=== PATIENT | male | born 1955 | race Caucasian/White ===

== ENCOUNTER 2021-08-04 12:15 | Emergency (ER) | payer OTHER, MEDICAID ==
[~2021-08-04] VITALS: Ht 180.3 cm; Wt 102.1 kg
[2021-08-04 12:17] VITALS: BP 140/75
== END 2021-08-04 21:41 | disposition left against medical advice (07) ==
LOC: ER 12:15
DX: Z49.01 Encounter for fitting and adjustment of extracorporeal dialysis catheter (principal); Z53.21 Procedure and treatment not carried out due to patient leaving prior to being seen by health care provider
CPT/HCPCS: 71045

== ENCOUNTER 2021-08-18 10:05 | Emergency (ER) | payer OTHER, MEDICAID ==
[~2021-08-18] VITALS: Ht 180.3 cm; Wt 125.6 kg
[2021-08-18 10:08] VITALS: BP 119/71
[2021-08-18] MEDS ORDERED: IOHEXOL 350 MG/ML 100ML IJ ONE (13:00)
[2021-08-18 18:42] LABS: Basophils # (auto) 0.1 10 ^3/uL (0-0.2); Basophils % (auto) 2.4 % (0.0-2.0); Eosinophils # (auto) 0.1 10 ^3/uL (0-0.8); Eosinophils % (auto) 2.2 % (0.0-7.0); Hematocrit 31.4 % (41.0-53.0); Hemoglobin 10.4 g/dL (13.5-17.5); Lymphocytes # (auto) 0.5 10 ^3/uL (0.4-5.4); Lymphocytes % (auto) 8.8 % (10.0-50.0); Mean Corpuscular Hemoglobin 32.2 pg (28.0-32.0); Mean Corpuscular Hgb Conc. 33.2 g/dL (32.0-36.0); Mean Corpuscular Volume 96.9 fL (80.0-100.0); Monocytes # (auto) 0.6 10 ^3/uL (0-1.3); Monocytes % (auto) 10.9 % (0.0-12.0); Neutrophils % (auto) 75.7 % (37.0-80.0); Nucleated Red Blood Cells % 0.1 %; Red Blood Cells 3.25 10^6/uL (4.5-5.90); Red Cell Distribution Width 13.1 % (11.8-14.3); White Blood Cell 5.3 10^3/uL (4.4-10.8)
[2021-08-18 18:57] LABS: INR 1.05 (0.9-1.15); Partial Thromboplastin Time 26.5 sec (23.6-33.0)
[2021-08-18 18:58] LABS: Albumin 3.6 g/dL (3.4-5.0); Calcium 8.5 mg/dL (8.5-10.1); Potassium 4.1 mmol/L (3.5-5.1)
[2021-08-18 19:11] LABS: BUN/Creatinine Ratio 8.5; Bilirubin, Total 0.4 mg/dL (0.2-1.0); Total Protein 7.5 g/dL (6.4-8.2)
== END 2021-08-18 19:57 | disposition left against medical advice (07) ==
LOC: ER 10:05
DX: Z49.01 Encounter for fitting and adjustment of extracorporeal dialysis catheter (principal); I10 Essential (primary) hypertension; E11.9 Type 2 diabetes mellitus without complications
CPT/HCPCS: 36415; 71046; 71275; 80053; 83735; 85025; 85610; 85730; 93005; 99285; Q9967

== ENCOUNTER 2022-05-14 19:08 | Inpatient (IN) | payer OTHER, MEDICAID ==
[~2022-05-14] VITALS: Ht 180.3 cm; Wt 125.8 kg
[2022-05-14 19:39] LABS: Basophils # (auto) 0 10 ^3/uL (0-0.2); Basophils % (auto) 0.8 % (0.0-2.0); Eosinophils # (auto) 0.1 10 ^3/uL (0-0.8); Hematocrit 34.9 % (41.0-53.0); Hemoglobin 11.7 g/dL (13.5-17.5); Lymphocytes # (auto) 0.5 10 ^3/uL (0.4-5.4); Mean Corpuscular Hemoglobin 33.3 pg (28.0-32.0); Mean Corpuscular Hgb Conc. 33.6 g/dL (32.0-36.0); Mean Corpuscular Volume 98.9 fL (80.0-100.0); Monocytes # (auto) 0.4 10 ^3/uL (0-1.3); Monocytes % (auto) 13.3 % (0.0-12.0); Neutrophils # (auto) 2.2 10 ^3/uL (1.6-8.6); Neutrophils % (auto) 66.9 % (37.0-80.0); Red Blood Cells 3.53 10^6/uL (4.5-5.90); White Blood Cell 3.2 10^3/uL (4.4-10.8)
[2022-05-14 19:57] LABS: Albumin 3.6 g/dL (3.4-5.0); Potassium 4.4 mmol/L (3.5-5.1)
[2022-05-14 20:02] LABS: BUN/Creatinine Ratio 8.3; Bilirubin, Total 0.4 mg/dL (0.2-1.0); Total Protein 7.3 g/dL (6.4-8.2)
[2022-05-14 20:57] LABS: INR 1.06 (0.9-1.15); Partial Thromboplastin Time 26.6 sec (24.6-33.4)
[2022-05-14] MEDS ORDERED: TEMAZEPAM 15 MG CAP PO PRN (21:30)
[2022-05-14] MEDS ORDERED: ACETAMINOPHEN 325 MG TAB PO PRN (21:30)
[2022-05-14] MEDS ORDERED: ONDANSETRON HCL 4 MG/2 ML VIAL IV PRN (21:30)
[2022-05-14] MEDS ORDERED: MORPHINE SULFATE INJ 2 MG/ml SYRG IV PRN (21:30)
[2022-05-14] MEDS ORDERED: ENOXAPARIN SOD 120 MG/0.8 ML SYRINGE SC ONE (21:30)
[2022-05-14] MEDS ORDERED: NITROGLYCERIN 0.4 MG SL TAB SL PRN (21:30)
[2022-05-14] MEDS ORDERED: DEXTROSE (50%) 50ML SYRG IV PRN (21:30)
[2022-05-14] MEDS: hydrALAZINE HCL 25 MG TAB PO SCH (22:00)
[2022-05-14] MEDS: InsuLIN REG 1unit/0.01ml Soln (100units/ml) SC SCH (22:00)
[2022-05-14] MEDS: SODIUM BICARBONATE 650 MG TAB PO SCH (22:28)
[2022-05-14] MEDS: MONTELUKAST SODIUM 10 MG TAB PO SCH (22:28)
[2022-05-14] MEDS: ACCU-CHEK COMFORT CURVE STRIP VI SCH (22:29)
[2022-05-15 04:46] LABS: Basophils # (auto) 0 10 ^3/uL (0-0.2); Eosinophils # (auto) 0.1 10 ^3/uL (0-0.8); Eosinophils % (auto) 3.5 % (0.0-7.0); Hematocrit 33.4 % (41.0-53.0); Hemoglobin 11.4 g/dL (13.5-17.5); Lymphocytes # (auto) 0.5 10 ^3/uL (0.4-5.4); Lymphocytes % (auto) 13.5 % (10.0-50.0); Mean Corpuscular Hemoglobin 33.5 pg (28.0-32.0); Mean Corpuscular Volume 98.6 fL (80.0-100.0); Monocytes # (auto) 0.4 10 ^3/uL (0-1.3); Monocytes % (auto) 11.1 % (0.0-12.0); Neutrophils # (auto) 2.5 10 ^3/uL (1.6-8.6); Neutrophils % (auto) 70.9 % (37.0-80.0); Red Blood Cells 3.39 10^6/uL (4.5-5.90); Red Cell Distribution Width 13.8 % (11.8-14.3); White Blood Cell 3.5 10^3/uL (4.4-10.8)
[2022-05-15 05:07] LABS: Albumin 3.5 g/dL (3.4-5.0); Calcium 8.2 mg/dL (8.5-10.1); Potassium 4.2 mmol/L (3.5-5.1)
[2022-05-15 05:12] LABS: BUN/Creatinine Ratio 8.3; Bilirubin, Total 0.5 mg/dL (0.2-1.0); Total Protein 7.4 g/dL (6.4-8.2)
[2022-05-15] MEDS: InsuLIN REG 1unit/0.01ml Soln (100units/ml) SC SCH ×4 (07:35→22:00)
[2022-05-15] MEDS: ACCU-CHEK COMFORT CURVE STRIP VI SCH ×4 (07:35→22:10)
[2022-05-15] MEDS: SEVELAMER 800 MG TAB PO SCH ×3 (08:11→18:15)
[2022-05-15] MEDS: hydrALAZINE HCL 25 MG TAB PO SCH ×2 (10:00→22:13)
[2022-05-15] MEDS: PANTOPRAZOLE 40 MG TAB PO SCH (10:04)
[2022-05-15] MEDS: CLOPIDOGREL BISULFATE 75 MG TAB PO SCH (10:04)
[2022-05-15] MEDS: ASPirin 81 mg TAB PO SCH (10:05)
[2022-05-15] MEDS: SODIUM BICARBONATE 650 MG TAB PO SCH ×2 (10:05→22:14)
[2022-05-15] MEDS: ALLOPURINOL 100 MG TAB PO SCH (10:05)
[2022-05-15] MEDS: METOPROLOL SUCCINATE XL 50 MG TAB PO SCH (10:05)
[2022-05-15 15:26] LABS: INR 1.08 (0.9-1.15); Partial Thromboplastin Time 30.4 sec (24.6-33.4)
[2022-05-15] MEDS ORDERED: HEPARIN DRIP/D5W 100UNITS/ML 250 ML IV SCH ×2 (15:45→21:00)
[2022-05-15] MEDS ORDERED: SODI650T PO (15:49)
[2022-05-15] MEDS ORDERED: NITR0.4S29 SL (15:49)
[2022-05-15] MEDS ORDERED: SEVE800T8 PO (15:49)
[2022-05-15] MEDS ORDERED: DULO30CA PO (15:49)
[2022-05-15] MEDS ORDERED: INSUINJ37 SC (15:49)
[2022-05-15] MEDS ORDERED: TERA5CAP2 PO (15:49)
[2022-05-15] MEDS ORDERED: COLC0.6T56 PO (15:49)
[2022-05-15] MEDS ORDERED: OLOP1DRO5 OP (15:49)
[2022-05-15] MEDS ORDERED: FLUT50SP EACHNOSTRI (15:49)
[2022-05-15] MEDS ORDERED: CLOP75TA70 PO (15:49)
[2022-05-15] MEDS ORDERED: ALLO100T PO (15:49)
[2022-05-15] MEDS ORDERED: METO-289 PO (15:49)
[2022-05-15] MEDS ORDERED: ASPI-498 PO (15:49)
[2022-05-15] MEDS ORDERED: TRAZ100T3 PO (15:49)
[2022-05-15] MEDS ORDERED: MONT10TA23 PO (15:49)
[2022-05-15] MEDS ORDERED: ALBU108A5 IN (15:49)
[2022-05-15] MEDS ORDERED: CINA30TA2 PO (15:51)
[2022-05-15] MEDS ORDERED: ATO40T PO (18:05)
[2022-05-15 20:00] VITALS: BP 141/81
[2022-05-15 21:30] VITALS: BP 141/81
[2022-05-15] MEDS: ATORVASTATIN 20 MG TAB PO SCH (22:13)
[2022-05-15] MEDS: MONTELUKAST SODIUM 10 MG TAB PO SCH (22:13)
[2022-05-16] VITALS (10 sets, daily range): BP systolic 112–172; BP diastolic 64–92
[2022-05-16] MEDS ORDERED: SODIUM CHL 0.9% 1000 ML BAG XX ONE (04:15)
[2022-05-16 04:35] LABS: INR 1.07 (0.9-1.15); Partial Thromboplastin Time 45.5 sec (24.6-33.4)
[2022-05-16] MEDS: SEVELAMER 800 MG TAB PO SCH ×2 (08:00→12:00)
[2022-05-16] MEDS: ALLOPURINOL 100 MG TAB PO SCH (09:38)
[2022-05-16] MEDS: hydrALAZINE HCL 25 MG TAB PO SCH ×2 (09:38→23:01)
[2022-05-16] MEDS: METOPROLOL SUCCINATE XL 50 MG TAB PO SCH (09:38)
[2022-05-16] MEDS: ASPirin 81 mg TAB PO SCH (09:38)
[2022-05-16] MEDS: SODIUM BICARBONATE 650 MG TAB PO SCH ×2 (09:38→23:01)
[2022-05-16] MEDS: CLOPIDOGREL BISULFATE 75 MG TAB PO SCH (09:39)
[2022-05-16] MEDS: PANTOPRAZOLE 40 MG TAB PO SCH (09:39)
[2022-05-16 11:27] LABS: INR 1.07 (0.9-1.15)
[2022-05-16] MEDS: ACCU-CHEK COMFORT CURVE STRIP VI SCH ×4 (11:30→23:02)
[2022-05-16] MEDS: InsuLIN REG 1unit/0.01ml Soln (100units/ml) SC SCH ×3 (11:30→22:00)
[2022-05-16] MEDS ORDERED: LIDOCAINE 2%HCL (LOCAL ANESTH.) INJ 20ML MDV ONE (12:46)
[2022-05-16] MEDS ORDERED: IODIXANOL 320MG/ML 100ML BTL IV ONE ×3 (12:46→14:09)
[2022-05-16] MEDS ORDERED: HEPARIN SODIUM (PORCINE) 5000 UNITS/ML 1ML VIAL ONE (13:08)
[2022-05-16] MEDS ORDERED: VERAPAMIL 2.5MG/ML INJ 2ML VIAL IV ONE (13:08)
[2022-05-16] MEDS ORDERED: fentaNYL CITRATE 100 MCG/2 ML VL ONE (13:09)
[2022-05-16] MEDS ORDERED: MIDAZOLAM HCL 2MG/2ML 2ml VIAL (1mg/ml) ONE (13:09)
[2022-05-16] MEDS ORDERED: ANGIOMAX 250 MG VIAL IV ONE (13:14)
[2022-05-16] MEDS ORDERED: SODIUM CHL 0.9% 50 ML ONE (13:14)
[2022-05-16] MEDS ORDERED: CLOPIDOGREL 300 MG TAB ONE (14:18)
[2022-05-16] MEDS: ATORVASTATIN 20 MG TAB PO SCH (23:01)
[2022-05-16] MEDS: MONTELUKAST SODIUM 10 MG TAB PO SCH (23:02)
[2022-05-17 04:15] VITALS: BP 137/71
[2022-05-17 05:41] LABS: Cholesterol 96 mg/dL (< 200); HDL Cholesterol 44 mg/dL (40-59); LDL Cholesterol 42 mg/dL (< 100); Triglycerides 139 mg/dL (< 150)
[2022-05-17] MEDS: ACCU-CHEK COMFORT CURVE STRIP VI SCH ×2 (06:17→11:17)
[2022-05-17] MEDS: InsuLIN REG 1unit/0.01ml Soln (100units/ml) SC SCH ×3 (06:45→11:17)
[2022-05-17] MEDS ORDERED: SODIUM CHL 0.9% 1000 ML BAG XX ONE (07:00)
[2022-05-17] MEDS: SEVELAMER 800 MG TAB PO SCH ×2 (08:23→08:31)
[2022-05-17] MEDS: PANTOPRAZOLE 40 MG TAB PO SCH (08:24)
[2022-05-17] MEDS: ASPirin 81 mg TAB PO SCH (08:24)
[2022-05-17] MEDS: SODIUM BICARBONATE 650 MG TAB PO SCH (08:24)
[2022-05-17] MEDS: hydrALAZINE HCL 25 MG TAB PO SCH (08:26)
[2022-05-17] MEDS: METOPROLOL SUCCINATE XL 50 MG TAB PO SCH (08:26)
[2022-05-17] MEDS: CLOPIDOGREL BISULFATE 75 MG TAB PO SCH (08:26)
[2022-05-17] MEDS: ALLOPURINOL 100 MG TAB PO SCH (08:30)
[2022-05-17 08:53] LABS: BUN/Creatinine Ratio 7.6; Calcium 8.1 mg/dL (8.5-10.1); Potassium 4.4 mmol/L (3.5-5.1)
[2022-05-17 09:00] VITALS: BP 153/78
[2022-05-17 12:06] VITALS: BP 132/87
[2022-05-17 12:27] VITALS: BP 132/87
== END 2022-05-17 12:40 | disposition home or self-care (01) | DRG 246 ==
LOC: EDBD 19:08 → ER 19:08 → EDBD 21:35 → TELE 21:35 → TELE-EAST 05-15 16:31
PROVIDERS: ADMIT Nurse Practitioner; ATTEND Internal Medicine Geriatric Medicine
PROC: 027034Z Dilation of Coronary Artery, One Artery with Drug-eluting Intraluminal Device, Percutaneous Approach (ICD-10-PCS; principal; 2022-05-16)
PROC: 5A1D70Z Performance of Urinary Filtration, Intermittent, Less than 6 Hours Per Day (ICD-10-PCS; 2022-05-16)
DX: I21.4 Non-ST elevation (NSTEMI) myocardial infarction (principal); N18.6 End stage renal disease; T82.867A Thrombosis due to cardiac prosthetic devices, implants and grafts, initial encounter; I12.0 Hypertensive chronic kidney disease with stage 5 chronic kidney disease or end stage renal disease; T82.855A Stenosis of coronary artery stent, initial encounter; D63.8 Anemia in other chronic diseases classified elsewhere; E11.22 Type 2 diabetes mellitus with diabetic chronic kidney disease; E78.5 Hyperlipidemia, unspecified; I48.91 Unspecified atrial fibrillation; J45.909 Unspecified asthma, uncomplicated; D63.1 Anemia in chronic kidney disease; Z20.822 Contact with and (suspected) exposure to COVID-19; E66.9 Obesity, unspecified; E87.5 Hyperkalemia; Y83.1 Surgical operation with implant of artificial internal device as the cause of abnormal reaction of the patient, or of later complication, without mention of misadventure at the time of the procedure; I25.10 Atherosclerotic heart disease of native coronary artery without angina pectoris; M89.9 Disorder of bone, unspecified; Z99.2 Dependence on renal dialysis; Z68.38 Body mass index [BMI] 38.0-38.9, adult; Z79.02 Long term (current) use of antithrombotics/antiplatelets; Z79.82 Long term (current) use of aspirin; Y92.89 Other specified places as the place of occurrence of the external cause
CPT/HCPCS: 36415; 71045; 80048; 80053; 80061; 82962; 83735; 83880; 84484; 85025; 85610; 85730; 87426; 90935; 92928; 93005; 93306; 96372; 99152; 99153; 99291; C1874; G0378; J1642; J1815; J2250; Q9967

== ENCOUNTER 2023-02-23 18:07 | Inpatient (IN) | payer MEDICARE, MEDICAID ==
[~2023-02-23] VITALS: Ht 172.7 cm; Wt 123.8 kg
[~2023-02-23 18:07] MED LIST: ALBU108A5 IN; ALLO100T PO; ASPI-498 PO; ATO40T PO; CINA30TA2 PO; CLOP75TA70 PO; COLC0.6T56 PO; DULO30CA PO; FLUT50SP EACHNOSTRI; INSUINJ37 SC; METO-289 PO; MONT10TA23 PO; NITR0.4S29 SL; OLOP1DRO OP; SEVE800T8 PO; SODI650T PO; TERA5CAP57 PO; TRAZ-228 PO
[2023-02-23 18:28] VITALS: PULSE 83; RESP 17; O2SAT 96
[2023-02-23 18:49] LABS: Basophils # (auto) 0 10 ^3/uL (0-0.2); Eosinophils # (auto) 0.1 10 ^3/uL (0-0.8); Hemoglobin 11.1 g/dL (13.5-17.5); Lymphocytes # (auto) 0.6 10 ^3/uL (0.4-5.4); Mean Corpuscular Hemoglobin 35.1 pg (28.0-32.0); Mean Corpuscular Hgb Conc. 34.2 g/dL (32.0-36.0); Neutrophils # (auto) 2.7 10 ^3/uL (1.6-8.6); Red Blood Cells 3.16 10^6/uL (4.5-5.90); Red Cell Distribution Width 13.5 % (11.8-14.3); White Blood Cell 3.8 10^3/uL (4.4-10.8)
[2023-02-23 18:50] LABS: Basophils % (auto) 0.5 % (0.0-2.0); Eosinophils % (auto) 3.3 % (0.0-7.0); Hematocrit 32.4 % (41.0-53.0); Mean Corpuscular Volume 102.6 fL (80.0-100.0); Monocytes # (auto) 0.3 10 ^3/uL (0-1.3); Monocytes % (auto) 9.2 % (0.0-12.0); Nucleated Red Blood Cells % 0.2 %
[2023-02-23 19:18] LABS: Albumin 3.9 g/dL (3.4-5.0); Calcium 8.1 mg/dL (8.5-10.1); Potassium 4.3 mmol/L (3.5-5.1)
[2023-02-23 19:22] LABS: BUN/Creatinine Ratio 7.9 (10.0-20.0); Bilirubin, Total 0.4 mg/dL (0.2-1.0); Total Protein 7.4 g/dL (6.4-8.2)
[2023-02-23 19:27] VITALS: PULSE 90; RESP 18; O2SAT 96
[2023-02-23] MEDS ORDERED: NITROGLYCERIN 0.2MG/HR TOPICAL PATCH TD ONE (21:30)
[2023-02-23] MEDS ORDERED: METOPROLOL TARTRATE 25 MG TAB PO ONE (21:30)
[2023-02-23] MEDS ORDERED: PANTOPRAZOLE 40 MG/10 ML VIAL INJ IV ONE (21:30)
[2023-02-23] MEDS ORDERED: MORPHINE SULFATE 4 MG/ML SYR/VIAL IV ONE (21:30)
[2023-02-23] MEDS ORDERED: ACETAMINOPHEN 325 MG TAB PO ONE (21:30)
[2023-02-23] MEDS ORDERED: ATORVASTATIN 20 MG TAB PO ONE (21:30)
[2023-02-23] MEDS ORDERED: ONDANSETRON HCL 4 MG/2 ML VIAL IV ONE (21:30)
[2023-02-23] MEDS ORDERED: ASPirin 81 mg TAB PO ONE (21:30)
[2023-02-23] MEDS ORDERED: HEPARIN SODIUM (PORCINE) 5000 UNITS/ML 1ML VIAL IV ONE (22:00)
[2023-02-23] MEDS ORDERED: TEMAZEPAM 15 MG CAP PO PRN (23:00)
[2023-02-23] MEDS ORDERED: ONDANSETRON HCL 4 MG/2 ML VIAL IV PRN (23:00)
[2023-02-23] MEDS ORDERED: MORPHINE SULFATE INJ 2 MG/ml SYRG IV PRN (23:00)
[2023-02-23] MEDS ORDERED: ACETAMINOPHEN 325 MG TAB PO PRN (23:00)
[2023-02-23] MEDS ORDERED: NITROGLYCERIN 0.4 MG SL TAB SL PRN (23:00)
[2023-02-23] MEDS ORDERED: DEXTROSE (50%) 50ML SYRG IV PRN (23:00)
[2023-02-24 06:16] LABS: Basophils # (auto) 0 10 ^3/uL (0-0.2); Basophils % (auto) 0.7 % (0.0-2.0); Eosinophils # (auto) 0.1 10 ^3/uL (0-0.8); Eosinophils % (auto) 3.8 % (0.0-7.0); Hematocrit 29.7 % (41.0-53.0); Lymphocytes # (auto) 0.5 10 ^3/uL (0.4-5.4); Lymphocytes % (auto) 15.6 % (10.0-50.0); Mean Corpuscular Hemoglobin 34.9 pg (28.0-32.0); Mean Corpuscular Hgb Conc. 33.7 g/dL (32.0-36.0); Mean Corpuscular Volume 103.8 fL (80.0-100.0); Monocytes # (auto) 0.3 10 ^3/uL (0-1.3); Monocytes % (auto) 8.8 % (0.0-12.0); Neutrophils # (auto) 2.2 10 ^3/uL (1.6-8.6); Neutrophils % (auto) 71.1 % (37.0-80.0); Nucleated Red Blood Cells % 0.1 %; Red Blood Cells 2.86 10^6/uL (4.5-5.90); Red Cell Distribution Width 13.8 % (11.8-14.3); White Blood Cell 3.1 10^3/uL (4.4-10.8)
[2023-02-24] MEDS: ACCU-CHEK COMFORT CURVE STRIP VI SCH ×4 (06:20→22:47)
[2023-02-24] MEDS: InsuLIN REG 1unit/0.01ml Soln (100units/ml) SC SCH ×4 (06:20→22:00)
[2023-02-24 06:21] LABS: BUN/Creatinine Ratio 7.8 (10.0-20.0); Calcium 8.1 mg/dL (8.5-10.1); Potassium 4.5 mmol/L (3.5-5.1)
[2023-02-24 07:30] VITALS: O2SAT 96
[2023-02-24 08:01] LABS: Urine Bacteria NONE SEEN /hpf (None Seen); Urine Blood TRACE /uL (Negative); Urine Specific Gravity 1.011 (1.001-1.035); Urine WBC 2 /hpf (0 - 3)
[2023-02-24] MEDS ORDERED: HEPARIN DRIP/D5W 100UNITS/ML 250 ML IV SCH (08:15)
[2023-02-24 08:35] LABS: INR 1.08 (0.9-1.15); Partial Thromboplastin Time 28.1 SEC (24.5-34.5)
[2023-02-24] MEDS: SEVELAMER 800 MG TAB PO SCH ×3 (08:39→18:29)
[2023-02-24] MEDS: METOPROLOL SUCCINATE XL 50 MG TAB PO SCH (10:00)
[2023-02-24] MEDS: DULoxetine HCL 30 MG CAP PO SCH ×2 (10:07→22:25)
[2023-02-24] MEDS: ASPirin 81 mg TAB PO SCH ×2 (10:07→10:14)
[2023-02-24] MEDS: ISOSORBIDE MONONITRATE ER 60 MG TAB PO SCH (10:07)
[2023-02-24] MEDS: TICAGRELOR 90 MG TAB PO SCH ×2 (10:10→22:28)
[2023-02-24 15:17] LABS: Cholesterol 101 mg/dL (< 200)
[2023-02-24 15:20] LABS: HDL Cholesterol 41 mg/dL (40-59); LDL Cholesterol 42 mg/dL (< 100); Triglycerides 160 mg/dL (< 150)
[2023-02-24 15:30] LABS: Alcohol, Urine < 3.0 mg/dL (0-10); Amphetamine Screen, Urine NEGATIVE (NEGATIVE); Barbiturate Scree,Urine NEGATIVE (NEGATIVE); Benzodiazephine Screen, Urine NEGATIVE (NEGATIVE); Cannabinoid Screen, Urine NEGATIVE (NEGATIVE); Cocaine Screen, Urine NEGATIVE (NEGATIVE); Opiate Scree,Urine NEGATIVE (NEGATIVE); Phencyclidine Screen, Urine NEGATIVE (NEGATIVE)
[2023-02-24 16:07] LABS: Basophils # (auto) 0 10 ^3/uL (0-0.2); Eosinophils # (auto) 0.1 10 ^3/uL (0-0.8); Hemoglobin 9.8 g/dL (13.5-17.5); Mean Corpuscular Volume 102.1 fL (80.0-100.0); Monocytes # (auto) 0.3 10 ^3/uL (0-1.3); Monocytes % (auto) 10.3 % (0.0-12.0); Neutrophils # (auto) 1.9 10 ^3/uL (1.6-8.6); Nucleated Red Blood Cells % 0.1 %; White Blood Cell 2.9 10^3/uL (4.4-10.8)
[2023-02-24 16:09] LABS: Basophils % (auto) 0.8 % (0.0-2.0); Eosinophils % (auto) 4.3 % (0.0-7.0); Hematocrit 29.3 % (41.0-53.0); Lymphocytes # (auto) 0.6 10 ^3/uL (0.4-5.4); Lymphocytes % (auto) 19.3 % (10.0-50.0); Mean Corpuscular Hgb Conc. 33.3 g/dL (32.0-36.0); Neutrophils % (auto) 65.3 % (37.0-80.0); Red Blood Cells 2.86 10^6/uL (4.5-5.90); Red Cell Distribution Width 13.8 % (11.8-14.3)
[2023-02-24 16:23] LABS: INR 1.1 (0.9-1.15); Partial Thromboplastin Time 47.4 SEC (24.5-34.5)
[2023-02-24 19:38] VITALS: PULSE 59; RESP 14; O2SAT 100
[2023-02-24 20:30] VITALS: PULSE 60; RESP 14; O2SAT 99
[2023-02-24 21:50] VITALS: PULSE 69
[2023-02-24 21:55] VITALS: BP 145/90; PULSE 60; PULSE 80; RESP 16; TEMP 97.4; O2SAT 100
[2023-02-24] MEDS: ATORVASTATIN 20 MG TAB PO SCH (22:24)
[2023-02-24] MEDS: MONTELUKAST SODIUM 10 MG TAB PO SCH (22:25)
[2023-02-25] VITALS (12 sets, daily range): BP systolic 100–159; BP diastolic 59–93; PULSE 60–91; RESP 12–20; TEMP 97.4–98.3; O2SAT 95–100
[2023-02-25] MEDS ORDERED: POTA1POW PO (01:49)
[2023-02-25] MEDS ORDERED: NITR1SPR TL (01:49)
[2023-02-25] MEDS ORDERED: TICA90TA PO (01:49)
[2023-02-25] MEDS ORDERED: MOME1AER3 INH (01:49)
[2023-02-25] MEDS ORDERED: FLUT1SPR5 (01:49)
[2023-02-25] MEDS ORDERED: EVOL140I SC (01:49)
[2023-02-25] MEDS ORDERED: ISOS1TAB28 PO (01:49)
[2023-02-25] MEDS: ACCU-CHEK COMFORT CURVE STRIP VI SCH ×4 (06:25→21:36)
[2023-02-25] MEDS: InsuLIN REG 1unit/0.01ml Soln (100units/ml) SC SCH ×4 (06:26→21:36)
[2023-02-25 06:33] LABS: Basophils # (auto) 0 10 ^3/uL (0-0.2); Eosinophils # (auto) 0.1 10 ^3/uL (0-0.8); Hemoglobin 10.7 g/dL (13.5-17.5); Lymphocytes # (auto) 0.4 10 ^3/uL (0.4-5.4); Monocytes # (auto) 0.3 10 ^3/uL (0-1.3)
[2023-02-25 06:36] LABS: Basophils % (auto) 0.7 % (0.0-2.0); Eosinophils % (auto) 3.1 % (0.0-7.0); Hematocrit 31.6 % (41.0-53.0); Mean Corpuscular Hemoglobin 34.8 pg (28.0-32.0); Mean Corpuscular Hgb Conc. 33.9 g/dL (32.0-36.0); Mean Corpuscular Volume 102.7 fL (80.0-100.0); Monocytes % (auto) 7.6 % (0.0-12.0); Neutrophils % (auto) 77.6 % (37.0-80.0); Nucleated Red Blood Cells % 0.1 %; Red Blood Cells 3.08 10^6/uL (4.5-5.90); Red Cell Distribution Width 13.7 % (11.8-14.3); White Blood Cell 3.9 10^3/uL (4.4-10.8)
[2023-02-25 06:43] LABS: Albumin 3.8 g/dL (3.4-5.0); Calcium 8.4 mg/dL (8.5-10.1); Potassium 5.5 mmol/L (3.5-5.1)
[2023-02-25 06:47] LABS: BUN/Creatinine Ratio 7.9 (10.0-20.0); Bilirubin, Total 0.5 mg/dL (0.2-1.0); Total Protein 7.7 g/dL (6.4-8.2)
[2023-02-25] MEDS: SEVELAMER 800 MG TAB PO SCH ×3 (08:00→17:33)
[2023-02-25] MEDS: ASPirin 81 mg TAB PO SCH (10:00)
[2023-02-25] MEDS: DULoxetine HCL 30 MG CAP PO SCH ×2 (10:00→21:28)
[2023-02-25] MEDS: TICAGRELOR 90 MG TAB PO SCH ×2 (10:00→21:28)
[2023-02-25] MEDS ORDERED: LIDOCAINE 2%HCL (LOCAL ANESTH.) INJ 20ML MDV ONE (10:32)
[2023-02-25] MEDS ORDERED: IODIXANOL 320MG/ML 100ML BTL IV ONE ×2 (10:32→11:22)
[2023-02-25] MEDS ORDERED: fentaNYL CITRATE 100 MCG/2 ML VL ONE (10:36)
[2023-02-25] MEDS ORDERED: ANGIOMAX 250 MG VIAL IV ONE (10:36)
[2023-02-25] MEDS ORDERED: VERAPAMIL 2.5MG/ML INJ 2ML VIAL IV ONE (10:36)
[2023-02-25] MEDS ORDERED: MIDAZOLAM HCL 2MG/2ML 2ml VIAL (1mg/ml) ONE (10:37)
[2023-02-25] MEDS ORDERED: SODIUM CHL 0.9% 50 ML ONE (10:37)
[2023-02-25] MEDS ORDERED: ATORVASTATIN 20 MG TAB PO ONE (11:00)
[2023-02-25] MEDS ORDERED: ASPirin 81 mg TAB ONE (11:22)
[2023-02-25] MEDS ORDERED: TICAGRELOR 90 MG TAB ONE (11:22)
[2023-02-25] MEDS: PANTOPRAZOLE 40 MG TAB PO SCH (17:33)
[2023-02-25] MEDS: METOPROLOL SUCCINATE XL 50 MG TAB PO SCH (17:34)
[2023-02-25] MEDS: ISOSORBIDE MONONITRATE ER 60 MG TAB PO SCH (17:35)
[2023-02-25] MEDS: MONTELUKAST SODIUM 10 MG TAB PO SCH (21:28)
[2023-02-25] MEDS: ATORVASTATIN 20 MG TAB PO SCH (21:30)
[2023-02-26 05:00] VITALS: BP 93/62; PULSE 100; RESP 14; TEMP 98.2; O2SAT 95
[2023-02-26] MEDS: ACCU-CHEK COMFORT CURVE STRIP VI SCH ×2 (06:15→11:47)
[2023-02-26] MEDS: InsuLIN REG 1unit/0.01ml Soln (100units/ml) SC SCH ×2 (06:16→11:30)
[2023-02-26 06:51] LABS: Basophils # (auto) 0 10 ^3/uL (0-0.2); Eosinophils # (auto) 0.1 10 ^3/uL (0-0.8); Lymphocytes # (auto) 0.5 10 ^3/uL (0.4-5.4); Lymphocytes % (auto) 12.5 % (10.0-50.0); Monocytes # (auto) 0.4 10 ^3/uL (0-1.3); Nucleated Red Blood Cells % 0.2 %
[2023-02-26 06:54] LABS: Basophils % (auto) 0.9 % (0.0-2.0); Eosinophils % (auto) 2.4 % (0.0-7.0); Hematocrit 30.7 % (41.0-53.0); Hemoglobin 10.4 g/dL (13.5-17.5); Mean Corpuscular Hemoglobin 35.3 pg (28.0-32.0); Mean Corpuscular Hgb Conc. 33.8 g/dL (32.0-36.0); Mean Corpuscular Volume 104.2 fL (80.0-100.0); Neutrophils # (auto) 2.7 10 ^3/uL (1.6-8.6); Neutrophils % (auto) 73.2 % (37.0-80.0); Red Blood Cells 2.94 10^6/uL (4.5-5.90); Red Cell Distribution Width 13.5 % (11.8-14.3); White Blood Cell 3.7 10^3/uL (4.4-10.8)
[2023-02-26 08:00] VITALS: PULSE 83; PULSE 85; RESP 18; O2SAT 98
[2023-02-26] MEDS: DULoxetine HCL 30 MG CAP PO SCH (08:56)
[2023-02-26] MEDS: SEVELAMER 800 MG TAB PO SCH ×2 (08:56→12:00)
[2023-02-26] MEDS: METOPROLOL SUCCINATE XL 50 MG TAB PO SCH (08:56)
[2023-02-26] MEDS: ASPirin 81 mg TAB PO SCH (08:56)
[2023-02-26] MEDS: ISOSORBIDE MONONITRATE ER 60 MG TAB PO SCH (08:57)
[2023-02-26] MEDS: TICAGRELOR 90 MG TAB PO SCH (08:57)
[2023-02-26] MEDS: PANTOPRAZOLE 40 MG TAB PO SCH (08:57)
[2023-02-26 09:00] VITALS: BP 122/67; PULSE 85; RESP 18; TEMP 98.1; O2SAT 98
[2023-02-26 10:04] LABS: Albumin 3.6 g/dL (3.4-5.0); Calcium 8.4 mg/dL (8.5-10.1); Potassium 4.2 mmol/L (3.5-5.1)
[2023-02-26 10:09] LABS: BUN/Creatinine Ratio 7.7 (10.0-20.0); Bilirubin, Total 0.5 mg/dL (0.2-1.0); Total Protein 7.2 g/dL (6.4-8.2)
[2023-02-26 10:58] VITALS: BP 122/67; PULSE 85; TEMP 36.7
== END 2023-02-26 12:20 | disposition home or self-care (01) | DRG 250 ==
LOC: ER 18:07 → TELE 22:53 → TELE-WESTW 02-24 21:55
PROVIDERS: ADMIT Internal Medicine
PROC: 4A023N7 Measurement of Cardiac Sampling and Pressure, Left Heart, Percutaneous Approach (ICD-10-PCS; principal; 2023-02-25)
PROC: 02703ZZ Dilation of Coronary Artery, One Artery, Percutaneous Approach (ICD-10-PCS; 2023-02-25)
PROC: 5A1D70Z Performance of Urinary Filtration, Intermittent, Less than 6 Hours Per Day (ICD-10-PCS; 2023-02-25)
PROC: B211YZZ Fluoroscopy of Multiple Coronary Arteries using Other Contrast (ICD-10-PCS; 2023-02-25)
DX: I21.4 Non-ST elevation (NSTEMI) myocardial infarction (principal); I50.21 Acute systolic (congestive) heart failure; N18.6 End stage renal disease; I13.2 Hypertensive heart and chronic kidney disease with heart failure and with stage 5 chronic kidney disease, or end stage renal disease; Z68.41 Body mass index [BMI] 40.0-44.9, adult; D63.8 Anemia in other chronic diseases classified elsewhere; D69.6 Thrombocytopenia, unspecified; E78.5 Hyperlipidemia, unspecified; I25.110 Atherosclerotic heart disease of native coronary artery with unstable angina pectoris; E66.9 Obesity, unspecified; E87.5 Hyperkalemia; J45.909 Unspecified asthma, uncomplicated; I48.91 Unspecified atrial fibrillation; E11.22 Type 2 diabetes mellitus with diabetic chronic kidney disease; Z99.2 Dependence on renal dialysis; Z98.61 Coronary angioplasty status; Z83.3 Family history of diabetes mellitus; Z82.5 Family history of asthma and other chronic lower respiratory diseases; Z82.49 Family history of ischemic heart disease and other diseases of the circulatory system
CPT/HCPCS: 36415; 71046; 80048; 80053; 80061; 80307; 81001; 82962; 83036; 83880; 84443; 84484; 85025; 85379; 85610; 85730; 86850; 86900; 86901; 90935; 92920; 93005; 93306; 93458; 99152; 99153; C9113; G0378; J1815; J2250; Q9967

== ENCOUNTER 2023-08-31 11:37 | Emergency (ER) | payer MEDICARE, MEDICAID ==
[~2023-08-31] VITALS: Ht 180.3 cm; Wt 117.7 kg
[~2023-08-31 11:37] MED LIST changes: +EVOL140I SC; +FLUT1SPR5; +ISOS1TAB28 PO; +MOME1AER3 INH; +NITR1SPR TL; +POTA1POW PO; +TICA90TA PO
[2023-08-31 12:16] VITALS: BP 133/71; PULSE 94; RESP 18; TEMP 97.8; O2SAT 100
[2023-08-31] MEDS ORDERED: diphenhdrAMINE HCL 50 MG/1 ML VL IV ONE (14:15)
[2023-08-31] MEDS ORDERED: DexAMETHasone SOD PHOS 10MG/1ML VIAL INJ IV ONE (14:15)
[2023-08-31] MEDS ORDERED: PANTOPRAZOLE 40 MG/10 ML VIAL INJ IV ONE (14:15)
[2023-08-31] MEDS ORDERED: SODIUM CHLORIDE 0.9% 1,000 ML IV ONE (14:15)
[2023-08-31] MEDS ORDERED: PRED20TA2 PO (17:24)
[2023-08-31] MEDS ORDERED: DIPH25CA66 PO (17:24)
== END 2023-08-31 17:17 | disposition left against medical advice (07) ==
LOC: ER 11:37
DX: T78.3XXA Angioneurotic edema, initial encounter (principal); I25.810 Atherosclerosis of coronary artery bypass graft(s) without angina pectoris; I12.0 Hypertensive chronic kidney disease with stage 5 chronic kidney disease or end stage renal disease; N18.6 End stage renal disease; E11.9 Type 2 diabetes mellitus without complications; I48.91 Unspecified atrial fibrillation; J44.9 Chronic obstructive pulmonary disease, unspecified; F32.9 Major depressive disorder, single episode, unspecified; E78.5 Hyperlipidemia, unspecified; Z98.61 Coronary angioplasty status; Z98.890 Other specified postprocedural states; Z79.899 Other long term (current) drug therapy

== ENCOUNTER 2024-03-21 16:26 | Inpatient (IN) | payer MEDICARE, MEDICAID ==
[~2024-03-21] VITALS: Ht 180.3 cm; Wt 114.9 kg
[~2024-03-21 16:26] MED LIST changes: -ATO40T PO; +ATOR-507 PO; +DIPH25CA66 PO; -OLOP1DRO OP; +PRED20TA2 PO; -TERA5CAP57 PO; +TERA5CAP58 PO; +[UNRECOGNIZED DRUG - CODE] OP
[2024-03-21 17:09] VITALS: PULSE 117; RESP 17; O2SAT 93
[2024-03-21] MEDS: SODIUM CHLORIDE 0.9% 1,000 ML IV ONE (17:19)
[2024-03-21] MEDS: ACETAMINOPHEN IV 1000 MG/100ML (10MG/ML) IV STA (17:27)
[2024-03-21] MEDS: ONDANSETRON HCL 4 MG/2 ML VIAL IV ONE (17:35)
[2024-03-21] MEDS: CALCIUM GLUC 1,000mg/50ml-NS 50 ML IV SCH (18:09)
[2024-03-21 18:22] LABS: Basophils # (auto) 0 10 ^3/uL (0-0.2); Basophils % (auto) 0.2 % (0.0-2.0); Eosinophils # (auto) 0.1 10 ^3/uL (0-0.8); Eosinophils % (auto) 1.7 % (0.0-7.0); Hematocrit 34.9 % (41.0-53.0); Hemoglobin 11.6 g/dL (13.5-17.5); Lymphocytes # (auto) 0.5 10 ^3/uL (0.4-5.4); Lymphocytes % (auto) 9.7 % (10.0-50.0); Mean Corpuscular Hemoglobin 32.4 pg (28.0-32.0); Mean Corpuscular Hgb Conc. 33.2 g/dL (32.0-36.0); Mean Corpuscular Volume 97.8 fL (80.0-100.0); Monocytes # (auto) 0.7 10 ^3/uL (0-1.3); Neutrophils # (auto) 4.2 10 ^3/uL (1.6-8.6); Neutrophils % (auto) 76.4 % (37.0-80.0); Platelet Count (auto) 118 10^3/uL (140-450); Red Blood Cells 3.57 10^6/uL (4.5-5.90); Red Cell Distribution Width 15.3 % (11.8-14.3); White Blood Cell 5.6 10^3/uL (4.4-10.8)
[2024-03-21 18:24] LABS: COVID19 ANTIGEN SOFIA FIA NEGATIVE (NEGATIVE)
[2024-03-21 18:31] LABS: Chloride 97 mmol/L (98-107); Potassium 3.5 mmol/L (3.5-5.1); Sodium 137 mmol/L (136-145)
[2024-03-21 18:32] LABS: Anion Gap 15 (5-15); Calcium 8.5 mg/dL (8.7-10.4); Carbon Dioxide 25 mmol/L (20-30)
[2024-03-21 18:37] LABS: BUN/Creatinine Ratio 7.9 (10.0-20.0); Glucose 156 mg/dL (74-106)
[2024-03-21 18:39] LABS: Blood Urea Nitrogen 120 mg/dL (9-23)
[2024-03-21] MEDS: NOREPINEPHRINE 8 MG/250ML KIT 250 ML IV SCH (18:57)
[2024-03-21] MEDS: CEFEPIME 2GM/50ML NS 50 ML IV ONE (20:03)
[2024-03-21] MEDS ORDERED: ACETAMINOPHEN 325 MG TAB PO PRN (21:45)
[2024-03-21] MEDS ORDERED: ONDANSETRON HCL 4 MG/2 ML VIAL IV PRN (21:45)
[2024-03-21] MEDS ORDERED: DEXTROSE (50%) 50ML SYRG IV PRN (21:45)
[2024-03-21] MEDS ORDERED: MORPHINE SULFATE INJ 2 MG/ml SYRG IV PRN (21:45)
[2024-03-21] MEDS ORDERED: NITROGLYCERIN 0.4 MG SL TAB SL PRN (21:45)
[2024-03-21] MEDS: ATORVASTATIN 20 MG TAB PO SCH (21:53)
[2024-03-21] MEDS: SODIUM BICARBONATE 650 MG TAB PO SCH (21:53)
[2024-03-21] MEDS: ALBUMIN 5% 250 ML IV ONE (22:04)
[2024-03-21] MEDS: ACCU-CHEK COMFORT CURVE STRIP VI SCH (23:52)
[2024-03-21 23:57] LABS: Urine Bacteria FEW /hpf (None Seen); Urine Blood TRACE /uL (Negative); Urine Clarity Clear (Clear); Urine Color Light-Yellow (Yellow); Urine Protein, UAD 1+ (Negative); Urine Specific Gravity 1.013 (1.001-1.035); Urine Urobilinogen Normal (Negative); Urine WBC 1 /hpf (0 - 3); Urine pH 5.5 (5.0-9.0)
[2024-03-21] MEDS: InsuLIN REG 1unit/0.01ml Soln (100units/ml) SC SCH (23:57)
[2024-03-22 04:19] LABS: Basophils # (auto) 0 10 ^3/uL (0-0.2); Basophils % (auto) 0.3 % (0.0-2.0); Eosinophils # (auto) 0.1 10 ^3/uL (0-0.8); Eosinophils % (auto) 2.4 % (0.0-7.0); Hemoglobin 11.6 g/dL (13.5-17.5); Lymphocytes # (auto) 0.7 10 ^3/uL (0.4-5.4); Lymphocytes % (auto) 11.5 % (10.0-50.0); Mean Corpuscular Hemoglobin 33.5 pg (28.0-32.0); Mean Corpuscular Hgb Conc. 34.2 g/dL (32.0-36.0); Monocytes # (auto) 0.7 10 ^3/uL (0-1.3); Monocytes % (auto) 11.5 % (0.0-12.0); Neutrophils # (auto) 4.3 10 ^3/uL (1.6-8.6); Neutrophils % (auto) 74.3 % (37.0-80.0); Platelet Count (auto) 123 10^3/uL (140-450); Red Blood Cells 3.47 10^6/uL (4.5-5.90); Red Cell Distribution Width 14.8 % (11.8-14.3); White Blood Cell 5.8 10^3/uL (4.4-10.8)
[2024-03-22 04:35] LABS: Alanine Aminotransferase 32 U/L (7-40); Albumin 3.8 g/dL (3.2-4.8); Alkaline Phosphatase 84 U/L (46-116); Anion Gap 14 (5-15); Aspartate Aminotransferase 19 U/L (13-40); Calcium 9.1 mg/dL (8.7-10.4); Carbon Dioxide 23 mmol/L (20-30); Chloride 99 mmol/L (98-107); Glucose 152 mg/dL (74-106); Potassium 3.4 mmol/L (3.5-5.1); Sodium 136 mmol/L (136-145)
[2024-03-22 04:36] LABS: Bilirubin, Total 0.3 mg/dL (0.2-1.0); Total Protein 6.3 g/dL (5.7-8.2)
[2024-03-22 04:48] LABS: Blood Urea Nitrogen 103 mg/dL (9-23)
[2024-03-22] MEDS ORDERED: ASPirin 81 mg TAB PO SCH (10:00)
[2024-03-22] MEDS: cefTRIAXone 1GM/50ML D5W 50 ML IV SCH (11:20)
[2024-03-22] MEDS: CLOPIDOGREL BISULFATE 75 MG TAB PO SCH (11:32)
[2024-03-22] MEDS ORDERED: VANCOMYCIN PER PHARMACY 0 MG IV SCH (14:45)
[2024-03-22] MEDS: POTASSIUM EFFERVESENT TAB 25 MEQ PO ONE (15:41)
[2024-03-22] MEDS: VANCOMYCIN 1GM/200ML 200 ML IV SCH (15:46)
[2024-03-22 17:37] LABS: Body Fluid Red Blood Cells 50 CUMM (0-2000)
[2024-03-22 17:39] LABS: Body Fluid White Blood Cells 3 CUMM (0-200)
[2024-03-22 18:42] VITALS: BP 108/60; PULSE 73; RESP 16; TEMP 98.7; O2SAT 96
[2024-03-22 21:00] VITALS: BP 133/78; PULSE 78; RESP 16; TEMP 98.8; O2SAT 96
[2024-03-22] MEDS: APIXABAN 5 MG TAB PO SCH (21:20)
[2024-03-23] VITALS (8 sets, daily range): BP systolic 108–151; BP diastolic 71–92; PULSE 80–85; RESP 14–20; TEMP 97.9–98.8; O2SAT 95–98
[2024-03-23 06:06] LABS: Basophils # (auto) 0 10 ^3/uL (0-0.2); Basophils % (auto) 0.3 % (0.0-2.0); Eosinophils # (auto) 0.1 10 ^3/uL (0-0.8); Hematocrit 34.2 % (41.0-53.0); Hemoglobin 11.4 g/dL (13.5-17.5); Lymphocytes # (auto) 0.2 10 ^3/uL (0.4-5.4); Lymphocytes % (auto) 3.4 % (10.0-50.0); Mean Corpuscular Hemoglobin 32.8 pg (28.0-32.0); Mean Corpuscular Hgb Conc. 33.5 g/dL (32.0-36.0); Mean Corpuscular Volume 97.9 fL (80.0-100.0); Monocytes # (auto) 0.4 10 ^3/uL (0-1.3); Monocytes % (auto) 8.6 % (0.0-12.0); Neutrophils # (auto) 4.2 10 ^3/uL (1.6-8.6); Neutrophils % (auto) 84.7 % (37.0-80.0); Nucleated Red Blood Cells % 0.1 %; Platelet Count (auto) 121 10^3/uL (140-450); Red Blood Cells 3.49 10^6/uL (4.5-5.90); Red Cell Distribution Width 15.1 % (11.8-14.3)
[2024-03-23 06:32] LABS: Alanine Aminotransferase 32 U/L (7-40); Alkaline Phosphatase 73 U/L (46-116); Anion Gap 20 (5-15); Aspartate Aminotransferase 20 U/L (13-40); BUN/Creatinine Ratio 6.8 (10.0-20.0); Bilirubin, Total 0.2 mg/dL (0.2-1.0); Calcium 9.2 mg/dL (8.7-10.4); Carbon Dioxide 21 mmol/L (20-30); Chloride 96 mmol/L (98-107); Glucose 162 mg/dL (74-106); Potassium 3.6 mmol/L (3.5-5.1); Sodium 137 mmol/L (136-145); Total Protein 6.9 g/dL (5.7-8.2)
[2024-03-23 06:40] LABS: Blood Urea Nitrogen 98 mg/dL (9-23)
[2024-03-23] MEDS ORDERED: ASPirin 81 mg TAB PO SCH (10:00)
[2024-03-23] MEDS: DOCUSATE SOD 100 MG CAP PO PRN (14:29)
[2024-03-23] MEDS: DULoxetine HCL 30 MG CAP PO ONE (14:29)
[2024-03-23] MEDS: TERAZOSIN HCL 5 MG CAP PO SCH (21:05)
[2024-03-24 01:00] VITALS: BP 124/71; PULSE 81; RESP 18; TEMP 97.5; O2SAT 93
[2024-03-24 05:00] VITALS: BP 124/78; PULSE 82; RESP 20; TEMP 98.1; O2SAT 97
[2024-03-24 05:48] LABS: Basophils # (auto) 0 10 ^3/uL (0-0.2); Basophils % (auto) 0.5 % (0.0-2.0); Eosinophils # (auto) 0.2 10 ^3/uL (0-0.8); Eosinophils % (auto) 4.8 % (0.0-7.0); Hematocrit 33.2 % (41.0-53.0); Hemoglobin 11.2 g/dL (13.5-17.5); Lymphocytes # (auto) 0.3 10 ^3/uL (0.4-5.4); Lymphocytes % (auto) 8.7 % (10.0-50.0); Mean Corpuscular Hemoglobin 33.1 pg (28.0-32.0); Mean Corpuscular Hgb Conc. 33.8 g/dL (32.0-36.0); Mean Corpuscular Volume 97.8 fL (80.0-100.0); Monocytes # (auto) 0.5 10 ^3/uL (0-1.3); Monocytes % (auto) 13.9 % (0.0-12.0); Neutrophils # (auto) 2.5 10 ^3/uL (1.6-8.6); Neutrophils % (auto) 72.1 % (37.0-80.0); Platelet Count (auto) 110 10^3/uL (140-450); Red Cell Distribution Width 15.6 % (11.8-14.3); White Blood Cell 3.5 10^3/uL (4.4-10.8)
[2024-03-24 05:52] LABS: Chloride 97 mmol/L (98-107); Potassium 3.5 mmol/L (3.5-5.1); Sodium 138 mmol/L (136-145)
[2024-03-24 05:53] LABS: Anion Gap 18 (5-15); Calcium 9.6 mg/dL (8.7-10.4); Carbon Dioxide 23 mmol/L (20-30)
[2024-03-24 05:58] LABS: BUN/Creatinine Ratio 6.2 (10.0-20.0); Glucose 156 mg/dL (74-106)
[2024-03-24 06:06] LABS: Blood Urea Nitrogen 89 mg/dL (9-23)
[2024-03-24 08:00] VITALS: PULSE 81
[2024-03-24 08:33] VITALS: BP 121/77; PULSE 78; RESP 18; TEMP 97.8; O2SAT 95
[2024-03-24] MEDS: DULoxetine HCL 30 MG CAP PO SCH (09:30)
[2024-03-24] MEDS ORDERED: CEFD300C2 PO (10:56)
[2024-03-24 13:00] VITALS: BP 122/74; PULSE 89; RESP 18; TEMP 97.6; O2SAT 96
== END 2024-03-24 13:30 | disposition home or self-care (01) | DRG 871 ==
LOC: ER 16:26 → TELE 21:37 → TELE-EAST 03-22 18:32
PROVIDERS: ADMIT Nurse Practitioner; ATTEND Internal Medicine
DX: A41.9 Sepsis, unspecified organism (principal); G92.8 Other toxic encephalopathy; K65.9 Peritonitis, unspecified; I21.A1 Myocardial infarction type 2; N18.6 End stage renal disease; R65.21 Severe sepsis with septic shock; N25.81 Secondary hyperparathyroidism of renal origin; I50.22 Chronic systolic (congestive) heart failure; D68.69 Other thrombophilia; I13.2 Hypertensive heart and chronic kidney disease with heart failure and with stage 5 chronic kidney disease, or end stage renal disease; E11.22 Type 2 diabetes mellitus with diabetic chronic kidney disease; E78.5 Hyperlipidemia, unspecified; I25.10 Atherosclerotic heart disease of native coronary artery without angina pectoris; I48.91 Unspecified atrial fibrillation; E66.9 Obesity, unspecified; Z20.822 Contact with and (suspected) exposure to COVID-19; I45.10 Unspecified right bundle-branch block; I25.5 Ischemic cardiomyopathy; R47.81 Slurred speech; N40.0 Benign prostatic hyperplasia without lower urinary tract symptoms; F41.9 Anxiety disorder, unspecified; F32.A Depression, unspecified; Z79.899 Other long term (current) drug therapy; Z95.1 Presence of aortocoronary bypass graft; Z68.32 Body mass index [BMI] 32.0-32.9, adult
CPT/HCPCS: 36415; 70450; 71045; 74018; 80048; 80053; 80202; 81001; 82962; 83605; 83880; 84484; 85025; 87040; 87081; 87205; 87426; 89051; 93005; 93306; 96361; 96365; 96366; 96367; 96375; 97110; 97116; 97163; G0378; J0131; J0692; J1815; J2405

== ENCOUNTER 2024-05-23 13:52 | Inpatient (IN) | payer MEDICARE, MEDICAID ==
[2024-05-23] VITALS (21 sets, daily range): BP systolic 84–142; BP diastolic 24–108; PULSE 60–96; RESP 12–21; TEMP 97.7; O2SAT 91–100
[~2024-05-23] VITALS: Ht 180.3 cm; Wt 97.0 kg
[~2024-05-23 13:52] MED LIST changes: +CEFD300C2 PO; -CLOP75TA70 PO; -ISOS1TAB28 PO; -POTA1POW PO; -SODI650T PO
[2024-05-23] MEDS: SODIUM CHLORIDE 0.9% 1,000 ML IV ONE (14:27)
[2024-05-23 14:54] LABS: Basophils # (auto) 0 10 ^3/uL (0-0.2); Basophils % (auto) 0.3 % (0.0-2.0); Eosinophils # (auto) 0.1 10 ^3/uL (0-0.8); Eosinophils % (auto) 1.2 % (0.0-7.0); Hemoglobin 7.7 g/dL (13.5-17.5); Lymphocytes # (auto) 0.5 10 ^3/uL (0.4-5.4); Mean Corpuscular Hemoglobin 32.6 pg (28.0-32.0); Mean Corpuscular Volume 101.7 fL (80.0-100.0); Monocytes # (auto) 0.7 10 ^3/uL (0-1.3); Monocytes % (auto) 8.9 % (0.0-12.0); Neutrophils # (auto) 6.3 10 ^3/uL (1.6-8.6); Neutrophils % (auto) 82.6 % (37.0-80.0); Nucleated Red Blood Cells % 0.1 %; Platelet Count (auto) 160 10^3/uL (140-450); Red Blood Cells 2.36 10^6/uL (4.5-5.90); Red Cell Distribution Width 14.8 % (11.8-14.3); White Blood Cell 7.6 10^3/uL (4.4-10.8)
[2024-05-23 15:10] LABS: Alanine Aminotransferase 53 U/L (7-40); Albumin 3.7 g/dL (3.2-4.8); Alkaline Phosphatase 119 U/L (46-116); Anion Gap 19 (5-15); Aspartate Aminotransferase 48 U/L (13-40); BUN/Creatinine Ratio 6.9 (10.0-20.0); Bilirubin, Total < 0.2 mg/dL (0.2-1.0); Calcium 9.1 mg/dL (8.7-10.4); Carbon Dioxide 20 mmol/L (20-31); Chloride 94 mmol/L (98-107); Glucose 111 mg/dL (74-106); Potassium 4.7 mmol/L (3.5-5.1); Sodium 133 mmol/L (136-145); Total Protein 6.3 g/dL (5.7-8.2)
[2024-05-23 15:14] LABS: Blood Urea Nitrogen 120 mg/dL (9-23)
[2024-05-23] MEDS: ENOXAPARIN SOD 100 MG/1 ML SYRINGE SC ONE (16:01)
[2024-05-23] MEDS: DOPamine 1600MCG/ML D5W 250 ML IV ONE (16:15)
[2024-05-23] MEDS: DOPamine 1600MCG/ML D5W 250 ML IV SCH (16:15)
[2024-05-23] MEDS: ATROPINE SULF 1 MG/10ml SYR ONE (16:53)
[2024-05-23] MEDS: ATROPINE SULF 1 MG/10ml SYR IV PRN (16:53)
[2024-05-23] MEDS ORDERED: NITROGLYCERIN 0.4 MG SL TAB SL PRN (17:00)
[2024-05-23] MEDS ORDERED: ACETAMINOPHEN 325 MG TAB PO PRN (17:00)
[2024-05-23] MEDS ORDERED: HYDROcodone-ACET 5/325MG TAB PO PRN (17:00)
[2024-05-23] MEDS ORDERED: DOCUSATE SOD 100 MG CAP PO PRN (17:00)
[2024-05-23] MEDS ORDERED: MORPHINE SULFATE INJ 2 MG/ml SYRG IV PRN (17:00)
[2024-05-23] MEDS ORDERED: HYDROmorphone HCL 2 MG/ML VL/or syr IV PRN (17:00)
[2024-05-23] MEDS ORDERED: ONDANSETRON HCL 4 MG/2 ML VIAL IV PRN (17:00)
[2024-05-23] MEDS: NOREPINEPHRINE 8 MG/250ML KIT 250 ML IV SCH (17:03)
[2024-05-23] MEDS: SEVELAMER 800 MG TAB PO SCH (18:00)
[2024-05-23] MEDS: MORPHINE SULFATE 4 MG/ML SYR/VIAL IV ONE (18:30)
[2024-05-23] MEDS: ONDANSETRON HCL 4 MG/2 ML VIAL IV ONE (18:30)
[2024-05-23] MEDS: LORazepam 2MG/ML-1ML VIAL IV ONE (18:30)
[2024-05-23] MEDS: MORPHINE SULFATE 4 MG/ML SYR/VIAL ONE (18:46)
[2024-05-23] MEDS: LORazepam 2MG/ML-1ML VIAL ONE (18:46)
[2024-05-23 19:44] LABS: Triglycerides 181 mg/dL (< 150)
[2024-05-23 19:45] LABS: Base Excess -10.4 mmol/L (-2.0-3.0)
[2024-05-23 19:45] LABS: LDL Cholesterol 39 mg/dL (< 100)
[2024-05-23 19:46] LABS: Cholesterol 106 mg/dL (< 200); HDL Cholesterol 29 mg/dL (40-59)
[2024-05-23] MEDS: SODIUM CHLOR 0.9% PF (SALINE LOCK) 10ML VIAL/SYR IV SCH (21:07)
[2024-05-23] MEDS: FLUTICASONE PROP NASAL SPR 0.05 % (50MCG) 16GM SCH (21:52)
[2024-05-23] MEDS: Mometasone Furoate-Formoterol (Dulera) IN SCH (21:52)
[2024-05-23 22:21] LABS: INR 1.18 (0.9-1.15); Partial Thromboplastin Time 32.1 SEC (24.5-34.5); Prothrombin Time 12.4 sec (9.3-11.8)
[2024-05-23] MEDS ORDERED: TAMS0.4C39 PO (23:21)
[2024-05-24] VITALS (17 sets, daily range): BP systolic 84–127; BP diastolic 32–92; PULSE 50–73; RESP 10–26; TEMP 97.7–98.5; O2SAT 93–100
[2024-05-24 00:22] LABS: Urine Bacteria FEW /hpf (None Seen); Urine Blood 2+ /uL (Negative); Urine Clarity Turbid (Clear); Urine Color Yellow (Yellow); Urine Protein, UAD 1+ (Negative); Urine Specific Gravity 1.015 (1.001-1.035); Urine Urobilinogen Normal (Negative); Urine WBC 3 /hpf (0 - 3)
[2024-05-24] MEDS ORDERED: MIDAZOLAM HCL 2MG/2ML 2ml VIAL (1mg/ml) IV PRN (02:45)
[2024-05-24] MEDS ORDERED: fentaNYL CITRATE 100 MCG/2 ML VL IV ONE (02:45)
[2024-05-24] MEDS ORDERED: EPINEPHrine HCL 1 MG/10 ML SYRG ONE ×2 (03:43→03:57)
[2024-05-24] MEDS ORDERED: CALCIUM CHLOR(10%) 100MG/ML 10ML SYRINGE IV ONE (03:44)
[2024-05-24] MEDS ORDERED: SODIUM CHL 0.9% 1000 ML BAG XX ONE (07:00)
[2024-05-24] MEDS ORDERED: EPINEPHrine HCL 1 MG/10 ML SYRG IV ONE (08:55)
[2024-05-24] MEDS ORDERED: ALLOPURINOL 100 MG TAB PO SCH (10:00)
[2024-05-24] MEDS ORDERED: COLCHICINE 0.6 MG CAP PO SCH (10:00)
[2024-05-24] MEDS ORDERED: ATORVASTATIN 20 MG TAB PO SCH (10:00)
[2024-05-24] MEDS ORDERED: TICAGRELOR 60 MG TAB PO SCH (10:00)
[2024-05-24] MEDS ORDERED: ASPirin-EC 81 mg tab PO SCH (10:00)
[2024-05-24] MEDS ORDERED: MONTELUKAST SODIUM 10 MG TAB PO SCH (10:00)
[2024-05-24] MEDS ORDERED: CINACALCET HYDROCHLORIDE 30 MG TAB PO SCH (10:00)
[2024-05-24] MEDS ORDERED: INSULIN LANTUS (GLARGINE) 1 /0.01ml (100units/ml) SC SCH (10:00)
[2024-05-24] MEDS ORDERED: EPOETIN ALFA-EPBX 10,000 UNIT/1ML VIAL SC ONE (21:00)
== END 2024-05-24 10:55 ==
LOC: EDBD 13:52 → ER 14:09 → TELE 16:50 → ICU WEST 05-24 03:17
PROVIDERS: ADMIT Internal Medicine; ATTEND Internal Medicine
PROC: 06HY33Z Insertion of Infusion Device into Lower Vein, Percutaneous Approach (ICD-10-PCS; 2024-05-23)
PROC: B54BZZA Ultrasonography of Right Lower Extremity Veins, Guidance (ICD-10-PCS; 2024-05-23)
PROC: 5A12012 Performance of Cardiac Output, Single, Manual (ICD-10-PCS; principal; 2024-05-24)
PROC: 30233N1 Transfusion of Nonautologous Red Blood Cells into Peripheral Vein, Percutaneous Approach (ICD-10-PCS; 2024-05-24)
PROC: 5A2204Z Restoration of Cardiac Rhythm, Single (ICD-10-PCS; 2024-05-24)
PROC: 0BH17EZ Insertion of Endotracheal Airway into Trachea, Via Natural or Artificial Opening (ICD-10-PCS; 2024-05-24)
DX: R00.1 Bradycardia, unspecified (principal); N18.6 End stage renal disease; I21.A1 Myocardial infarction type 2; I12.0 Hypertensive chronic kidney disease with stage 5 chronic kidney disease or end stage renal disease; G93.49 Other encephalopathy; I49.8 Other specified cardiac arrhythmias; R55 Syncope and collapse; I45.3 Trifascicular block; I47.21 Torsades de pointes; R56.9 Unspecified convulsions; E11.22 Type 2 diabetes mellitus with diabetic chronic kidney disease; F41.9 Anxiety disorder, unspecified; F32.A Depression, unspecified; E66.9 Obesity, unspecified; Z68.29 Body mass index [BMI] 29.0-29.9, adult; I25.10 Atherosclerotic heart disease of native coronary artery without angina pectoris; E78.5 Hyperlipidemia, unspecified; I48.91 Unspecified atrial fibrillation; I46.9 Cardiac arrest, cause unspecified; D64.9 Anemia, unspecified; J44.89 Other specified chronic obstructive pulmonary disease; Z99.2 Dependence on renal dialysis; Z95.1 Presence of aortocoronary bypass graft; Z83.3 Family history of diabetes mellitus; Z82.49 Family history of ischemic heart disease and other diseases of the circulatory system; Z79.82 Long term (current) use of aspirin; Z79.899 Other long term (current) drug therapy; Z79.4 Long term (current) use of insulin
CPT/HCPCS: 36415; 36600; 70450; 71045; 76705; 80053; 80061; 81001; 82805; 83036; 83880; 84443; 84484; 85025; 85610; 85730; 86850; 86900; 86901; 86920; 92960; 93005; 96365; 96375; 99291; G0378; J2405

== ENCOUNTER 2024-05-24 10:55 | Inpatient (IN) | payer OTHER ==
[~2024-05-24 10:55] MED LIST changes: +TAMS0.4C39 PO
== END 2024-05-24 11:00 ==
LOC: OVERFLOW 10:55
PROVIDERS: ADMIT Internal Medicine; ATTEND Internal Medicine
DX: R55 Syncope and collapse (principal); N18.6 End stage renal disease; I21.A1 Myocardial infarction type 2; I12.0 Hypertensive chronic kidney disease with stage 5 chronic kidney disease or end stage renal disease; I45.3 Trifascicular block; I48.91 Unspecified atrial fibrillation; I25.10 Atherosclerotic heart disease of native coronary artery without angina pectoris; E78.5 Hyperlipidemia, unspecified; D64.9 Anemia, unspecified; E11.22 Type 2 diabetes mellitus with diabetic chronic kidney disease; Z82.49 Family history of ischemic heart disease and other diseases of the circulatory system; Z83.3 Family history of diabetes mellitus; Z91.041 Radiographic dye allergy status; Z95.1 Presence of aortocoronary bypass graft
CPT/HCPCS: G0378